=== PATIENT | male | born 1965 | race Caucasian/White ===

== ENCOUNTER 2016-11-30 06:59 | Outpatient (CLI) | payer OTHER ==
[2016-11-30 07:52] LABS: eGFR (African) > 60; eGFR (Non-African) > 60
== END 2016-11-30 07:00 ==
LOC: LAB 06:59
PROVIDERS: ATTEND Family Medicine
DX: R73.02 Impaired glucose tolerance (oral) (principal)
CPT/HCPCS: 36415; 80053; 80061; 82043; 83036

== ENCOUNTER 2018-02-14 07:14 | Outpatient (CLI) | payer OTHER ==
[2018-02-14 09:11] LABS: eGFR (Non-African) > 60
== END 2018-02-14 07:19 | disposition home or self-care (01) ==
LOC: LAB 07:14
PROVIDERS: ATTEND Family Medicine
DX: I10 Essential (primary) hypertension (principal); E11.9 Type 2 diabetes mellitus without complications
CPT/HCPCS: 36415; 80053; 80061; 83036; 84550

== ENCOUNTER 2019-03-31 07:04 | Outpatient (CLI) | payer OTHER ==
[2019-03-31 10:35] LABS: A1C 7.7 % (<5.7); HDL 43 mg/dL (>40); eGFR (Non-African) > 60
== END 2019-03-31 07:09 ==
LOC: LAB 07:04
PROVIDERS: ATTEND Family Medicine
DX: I10 Essential (primary) hypertension (principal); E11.69 Type 2 diabetes mellitus with other specified complication; E66.9 Obesity, unspecified
CPT/HCPCS: 36415; 80053; 80061; 82043; 83036